=== PATIENT | female | born 1970 | race Caucasian/White ===

== ENCOUNTER 2023-03-07 18:55 | Outpatient (OUT) | payer OTHER, SELFPAY ==
--- NOTE | 2023-03-07 | US_ITS ---
The [address] [address] Patient Name: SALVATORE MADDEN MRN: [id number] date: 1970 Sex: F Assigned Patient Location: US Current Patient Location: Accession/Order Number: [id number] Exam Date: 03/07/2023 18:57 Report Date: 03/08/2023 07:16 At the request of: AGAPITO MACKAY Procedure: US pelvis transvaginal EXAMINATION: US pelvis transvaginal HISTORY: VAGINAL BLEEDING N93.9 COMPARISON: No relevant comparison available. FINDINGS: The uterus is normal in size, contour and echotexture, retroflexed The uterus measures 9.9 x 4.2 x 4.2 cm. No focal myometrial mass. Linear hyperechogenicity identified within the endometrial cavity with acoustic shadowing consistent with an IUD, poorly visualized. The endometrium measures 5 mm, normal. The right ovary measures 2.0 x 1.7 x 2.1 cm. Normal color flow The left ovary is not visualized No free fluid US/US pelvis transvaginal IMPRESSION: No acute abnormality Electronically authenticated by: ANDI LAZAR Date: 03/08/2023 07:16
== END 2023-03-07 18:56 | disposition home or self-care (01) ==
PROVIDERS: PCP Family Medicine; Visit Provider Midwife
DX: N93.9 Abnormal uterine and vaginal bleeding, unspecified (principal)
CPT/HCPCS: 76830

== ENCOUNTER 2024-02-24 07:55 | Outpatient (OUT) | payer OTHER, SELFPAY ==
--- NOTE | 2024-02-24 08:03 | ECG_ITS ---
The [facility] Test Date: 2024-02-24 Pat Name: SALVATORE MADDEN Department: Room: - Gender: Female [employer]: : 1970 Requested By: CHINTAN TATE Order Number: [id number] Reading MD: YOHAN VIVAR Measurements Intervals [place] Rate: 58 P: 68 CO: 163 QRS: 84 QRSD: 81 T: 71 QT: 395 QTc: 389 Interpretive Statements SINUS BRADYCARDIA No previous ECG available for comparison Electronically Signed On 02-25-2024 7:54:59 EST by YOHAN VIVAR
--- OUTSIDE RECORDS SUMMARY | 2024-02-24 08:12 | XMS_ITS | CCD ---
Author Organization [facility] Inform ion Partnership [facility] Care Team Providers Care Nutter Up Name Role Phone CRISTAL BAÑUELOS Referring Unavailable NICK VORA. Primary Care Unavailable Nick Vora MD Primary Care Provider CRISTAL BAÑUELOS Attending Unavailable NICK VORA Referring Unavailable NICK VORA Primary Care Unavailable CRISTAL BAÑUELOS Referring Unavailable NICK VORA Primary Care Unavailable Nick Vora MD Unavailable [phone] BARBARA BARRAGAN Attending Unavailable BARBARA BARRAGAN Attending Unavailable BARBARA BARRAGAN Attending Unavailable BARBRAA BARRAGAN Referring Unavailable BARBARA BARRAGAN Attending Unavailable BARBARA BARRAGAN Referring Unavailable CHINTAN LEWIS Attending Unavailable BARBARA BARRAGAN Referring Unavailable Allergies Allergy Classification Reported Allergen(s) Allergy Type Date of Onset Reaction(s) Facility (7 sources) Iohexol; Translations: [IOHEXOL] Drug Allergy 09-13-2016 [facility] Repository (11 sources) Iodinated Contrast Media Drug Allergy 09-13-2016 [facility] Medications Current Medications Medication Drug Class(es) Dates Sig (Normalized) Sig (Original) levothyroxine sodium 0.075 mg oral tablet (17 sources) l-Thyroxine Start: 12-22-2023 SYNTHROID 75 mcg tablet Indications: Hypothyroidism, unspecified type 1 tablet daily and skipping on Tuesday 78 tablet 3 12/22/2023 Active Start: 12-21-2022 End: 12-22-2023 take 1 tablet by mouth before mealtime Synthroid 75 MCG tablet Take 75 mcg by mouth in the morning. Take before meals. 12/21/2022 Active liothyronine sodium 0.005 mg oral tablet (15 sources) l-Triiodothyronine Start: 12-21-2022 take 1 tablet by mouth every other day liothyronine (Cytomel) 5 MCG tablet Take 5 mcg by mouth every other day 12/21/2022 Active Completed/Discontinued Medications Medication Drug Class(es) Dates Sig (Normalized) Sig (Original) acetaminophen 325 mg / HYDROcodone bitartrate 7.5 mg oral tablet (1 source) Opioid Agonist Start: 12-05-2017 End: 12-19-2023 HYDROcodone-acetami nophen (NORCO) 7.5-325 mg per tablet Indications: Abdominal wall bulge Take 1 tablet by mouth every 6 (six) hours as needed for pain for up to 25 doses. Max Daily Amount: 4 tablets 25 tablet 12/05/2017 12/19/2023 Discontinued levonorgestrel 0.480986 mg/hr intrauterine system (4 sources) Progestin, Progestin-containi ng Intrauterine Device End: 12-22-2023 Levonorgestrel (Liletta, 52 MG,) 20.1 MCG/DAY intrauterine device Liletta 12/22/2023 Discontinued (Therapy completed) Problems Problem Classification Problem Date Documented Date Episodic/Chronic Diabetes mellitus without complication (1 source) Diabetes mellitus Onset: 12-19-2023 Chronic Menopausal disorders (15 sources) Postmenopausal bleeding; Translations: [Postmenopausal bleeding] Onset: 02-06-2024 02-06-2024 Chronic Other screening for suspected conditions (not mental disorders or infectious disease) (4 sources) Cancer cervix screening status; Translations: [Encounter for screening for malignant neoplasm of cervix] 01-05-2024 Episodic Thyroid disorders (7 sources) Hypothyroidism, unspecified; Translations: [Hypothyroidism] Onset: 03-16-2023 12-19-2023 Chronic Results Test Name Value Interpretation Reference Range Facility DBT Breast - bilateral raudel johnson 01-25-2024 Impression: No specific evidence of malignancy seen in either breast. BIRADS 2 - Benign Findings DENSITY: The breasts are heterogeneously dense, which may obscure small masses. FOLLOW-UP: Routine Screening Mammogram ELECTRONICALLY SIGNED BY: Dragan Lynn M.D. IMAGING Examination: BI MAMMOGRAM SCREENING TOMOSYNTHESIS BILATERAL Clinical History: screening Technique: Screening digital mammography study of both breasts was performed with 2-D and 3-D tomosynthesis imaging. Study was compared to the prior exam dated 01/26/2022. Findings: There is no evidence of interval dominant spiculated mass, grouped microcalcifications , or skin thickening which would be suggestive of malignancy. A few benign-appearing calcifications are seen on the right. Dragan Garcia MD - 01/25/2024 Examination: BI MAMMOGRAM SCREENING TOMOSYNTHESIS BILATERAL Clinical History: screening Technique: Screening digital mammography study of both breasts was performed with 2-D and 3-D tomosynthesis imaging. Study was compared to the prior exam dated 01/26/2022. Findings: There is no evidence of interval dominant spiculated mass, grouped microcalcifications , or skin thickening which would be suggestive of malignancy. A few benign-appearing calcifications are seen on the right. IMPRESSION: Impression: No specific evidence of malignancy seen in either breast. BIRADS 2 - Benign Findings DENSITY: The breasts are heterogeneously dense, which may obscure small masses. FOLLOW-UP: Routine Screening Mammogram ELECTRONICALLY SIGNED BY: Dragan Lynn M.D. [facility] DBT Breast - bilateral scree ningOrdered By: Dragan Lynn on 01-25-2024 [facility] BI MAMMOGRAM SCREENING TOMOS YNTHESIS BILATERALon 01-24-2024 BI MAMMOGRAM SCREENING TOMOSYNTHESIS BILATERAL This is a summary report. The complete report is available in the patient's medical record. If you cannot access the medical record, please contact the sending organization for a detailed fax or copy. Examination: BI MAMMOGRAM SCREENING TOMOSYNTHESIS BILATERAL Clinical History: screening Technique: Screening digital mammography study of both breasts was performed with 2-D and 3-D tomosynthesis imaging. Study was compared to the prior exam dated 01/26/2022. Findings: There is no evidence of interval dominant spiculated mass, grouped microcalcifications , or skin thickening which would be suggestive of malignancy. A few benign-appearing calcifications are seen on the right. IMPRESSION: Impression: No specific evidence of malignancy seen in either breast. BIRADS 2 - Benign Findings DENSITY: The breasts are heterogeneously dense, which may obscure small masses. FOLLOW-UP: Routine Screening Mammogram ELECTRONICALLY SIGNED BY: Dragan Lynn M.D. Normal Not Available DBT Breast - bilateral scree alex 01-24-2024 Radiology Study observation (narrative) [facility] - Cytologyon 12-16 Sheet Folder Cyto stain Nom (Cvx/Vag) [ID] [facility] Comment on above: KMB, CT(ASCP) CT scr eening location: [place] [address]. LXT, CT(ASCP) CT scr eening location: [place] [address]. Cytology study comment Cyto stain Arjun (Cvx/Vag) [Interp] [facility] Comment on above: This Pap test has be en evaluated with computer assisted technology. Microscopic observation Cyto stain Nom (Cvx) [facility] Comment on above: Cytology Results: Ne gative for intraepithelial lesion or malignancy. Specimen source Cyto stain Nom (Cvx/Vag) [facility] Comment on above: None given Statement of adequacy Cyto stain (Cvx/Vag) [Interp] [facility] Comment on above: Satisfactory for francia luation. Endocervical/transformation zone component absent. Laboratory - Microbiology an d Antimicrobial susceptibilityon 01-13-2024 HPV 16+18+31+33+35+39+45+51+ 52+56+58+59+66+68 DNA ESTRELLA+probe Ql (Cvx) Not detected NOT DETECTED [facility] Comment on above: Not Detected High Risk HPV types (16,18,31,33,35,39,45,51,52, 56,58,59,66,68) were not detected. Other HPV types which cause anogenital lesions may be present. The significance of the other types of HPV in malignant processes has not been established. Methodology: Real Time PCR No Panel Informationon 01-12 (ALWAYS MESSAGE) [facility] Comment on above: EXPLANATORY NOTE: The Pap is a screening test for cervical cancer. It is not a diagnostic test and is subject to false negative and false positive results. It is most reliable when a satisfactory sample, regularly obtained, is submitted with relevant clinical findings and history, and when the Pap result is evaluated along with historic and current clinical information. Clinical information [facility] Comment on above: None given Date of previous biopsy [facility] Comment on above: NONE GIVEN Date of previous PAP smear [facility] Comment on above: NONE GIVEN Last menstrual period start date [facility] Comment on above: NONE GIVEN Performing Organization Information Site ID: [id number] Name: [facility]/Eitan Doherty MD Address: [address] [place] [address] Dr Daley, MD Director: Russell Langford M.D.,PhD Site ID: [id number] Name: [facility] Address: [address] [place] [address], [address] [place] [id number] Director: Adam Westbrook MD [facility] US Pelvis transvaginalon EXAM: Pelvic Ultrasound, Transvaginal: REASON FOR EXAM: PMB. COMPARISON: None TECHNIQUE: Grayscale and color Doppler ultrasound of the pelvis performed . Transvaginal images were acquired. FINDINGS: Uterus/Endometrium: The uterus is retroflexed. No visible endometrial thickening. A rounded echogenic structure in the lower uterine canal measures 5 mm x 4 mm x 3 mm. Cervix: Normal. Ovaries: The ovaries are not identified due to bowel gas obscuration. Peritoneum: No free fluid visualized. Measurements: Uterus: 11.2 x 4.3 x 5.1 cm EM: 0.8 cm Right Ovary: Obscured Left Ovary: Obscured IMPRESSION: 1. Ovaries are obscured by bowel gas on this exam. 2. There is a small round echogenic lesion in the lower uterine canal, potentially an endometrial polyp. *This report is generated using voice recognition reporting (SocioSquare). On occasion ScreachTVcribe erroneously drops words from the report or replaces the spoken word with similar sounding words. Please call with any questions/concerns regarding this report.* Dictated and transcribed 12/26/2023/jf This report has been electronically signed and approved by the interpreting radiologist. IMAGING Cholo Jordan DO - 12/27/2023 EXAM: Pelvic Ultrasound, Transvaginal: REASON FOR EXAM: PMB. COMPARISON: None TECHNIQUE: Grayscale and color Doppler ultrasound of the pelvis performed . Transvaginal images were acquired. FINDINGS: Uterus/Endometrium: The uterus is retroflexed. No visible endometrial thickening. A rounded echogenic structure in the lower uterine canal measures 5 mm x 4 mm x 3 mm. Cervix: Normal. Ovaries: The ovaries are not identified due to bowel gas obscuration. Peritoneum: No free fluid visualized. Measurements: Uterus: 11.2 x 4.3 x 5.1 cm EM: 0.8 cm Right Ovary: Obscured Left Ovary: Obscured IMPRESSION: 1. Ovaries are obscured by bowel gas on this exam. 2. There is a small round echogenic lesion in the lower uterine canal, potentially an endometrial polyp. *This report is generated using voice recognition reporting (SocioSquare). On occasion PowerScribe erroneously drops words from the report or replaces the spoken word with similar sounding words. Please call with any questions/concerns regarding this report.* Dictated and transcribed 12/26/2023/jf This report has been electronically signed and approved by the interpreting radiologist. [facility] US Pelvis transvaginalOrdere d By: Cholo Jordan on 12-27-2023 [facility] Work Phone: US PELVIS TRANSVAGINALon US PELVIS TRANSVAGINAL EXAM: Pelvic Ultrasound, Transvaginal: REASON FOR EXAM: PMB. COMPARISON: None TECHNIQUE: Grayscale and color Doppler ultrasound of the pelvis performed . Transvaginal images were acquired. FINDINGS: Uterus/Endometrium: The uterus is retroflexed. No visible endometrial thickening. A rounded echogenic structure in the lower uterine canal measures 5 mm x 4 mm x 3 mm. Cervix: Normal. Ovaries: The ovaries are not identified due to bowel gas obscuration. Peritoneum: No free fluid visualized. Measurements: Uterus: 11.2 x 4.3 x 5.1 cm EM: 0.8 cm Right Ovary: Obscured Left Ovary: Obscured IMPRESSION: 1. Ovaries are obscured by bowel gas on this exam. 2. There is a small round echogenic lesion in the lower uterine canal, potentially an endometrial polyp. *This report is generated using voice recognition reporting (Adomike). On occasion PowerScribe erroneously drops words from the report or replaces the spoken word with similar sounding words. Please call with any questions/concerns regarding this report.* Dictated and transcribed 12/26/2023/jf This report has been electronically signed and approved by the interpreting radiologist. Normal Not Available US Pelvis transvaginalon Radiology Study observation (narrative) [facility] FREE T3on 12-19-2023 Free T3 [Mass/Vol] 3.41 pg/mL Normal 2.50-3.90 [facility] Comment on above: Performed By: #### 3 016-3, 3050-0, 7 #### [facility] ([id number]) [address] [place] [address] FREE T4on 12-19-2023 Free T4 [Mass/Vol] 0.90 ng/dL Normal 0.61-1.60 [facility] Comment on above: Performed By: #### 3 016-3, 3050-0, 3027 #### [facility] ([id number]) [address] [place] [address] Free T3 [Mass/Vol]on [facility] Free T4 [Mass/Vol]on [facility] T3, freeon 12-19-2023 Free T3 [Mass/Vol] 3.41 pg/mL 2.50 - 3. 90 pg/mL [facility] T4, freeon 12-19-2023 Free T4 [Mass/Vol] 0.9 ng/dL 0.61 - 1. 60 ng/dL [facility] TSHon 12-19-2023 TSH Qn 0.88 m[IU]/L [facility] TSH Qnon 12-19-2023 [facility] TSH 0.88 uIU/mL Normal 0.49-4.67 [facility] Comment on above: Performed By: #### 3 016-3, 305-0, 7 #### [facility] ([id number]) [address], [address] [place] [address] FREE T3on 03-16-2023 Free T3 [Mass/Vol] 2.89 pg/mL Normal 2.50-3.90 [facility] Comment on above: Performed By: #### 3 016-3, 3050-0, 7 #### [facility] ([id number]) [address] [place] [address] FREE T4on 03-16-2023 Free T4 [Mass/Vol] 0.88 ng/dL Normal 0.61-1.60 [facility] Comment on above: Performed By: #### 3 016-3, 3051-0, 3024-7 #### [facility] ([id number]) [address] [place] [address] TSH Qnon 03-16-2023 TSH 3.06 uIU/mL Normal 0.49-4.67 [facility] Comment on above: Performed By: #### 3 016-3, 3051-0, 3024-7 #### [facility] ([id number]) [address] [place] [address] Free T3on 06-23-2021 FT3 5.37 pg/mL High 2.00-4.40 [facility] [employer] Comment on above: Performed By: #### T SH, FT4, FT3 #### [facility] [address] [place], [place] [id number] Free T4on 06-23-2021 Free T4 [Mass/Vol] 0.74 ng/dL Low 0.80-1.80 [facility] [employer] Comment on above: Performed By: #### T SH, FT4, FT3 #### [facility] [address] [place], [place] [id number] TSHon 06-23-2021 TSH 0.564 uIU/mL Normal 0.400-4.500 [facility] [employer] Comment on above: Performed By: #### T SH, FT4, FT3 #### [facility] [address] [place], [place] [id number] FT3on 08-09-2018 FT3 3.67 pg/mL Normal 2.71-6.16 [facility] Comment on above: Performed By: #### 4 500, 6970, 4520 #### [facility] Unless Otherwise Noted [address] [facility] [address] [place] [address] / COLA #4724/CLIA # [id number] FT4on 08-09-2018 Free T4 [Mass/Vol] 0.82 ng/dL Normal 0.64-1.79 [facility] Comment on above: Performed By: #### 4 500, 4510, 4520 #### [facility] Unless Otherwise Noted [address] [facility] [address] [place] [address] / [facility] #4724/CLIA # [id number] TSHon 08-09-2018 TSH Qn 0.48 uIU/ml Normal 0.47-4.68 [facility] Comment on above: Performed By: #### 4 113, 2070, 4520 #### [facility] [place] Unless Otherwise Noted [address] [address] / COLA #4724/CLIA # [id number] Vital Signs Date Time Vital Sign Value Performing Clinician Linda rios 02-21-2024 08:29-0500 Body mass index (BMI) [Ratio] 23.99 kg/m2 [employer] Work Phone: [facility] 02-21-2024 08:29-0500 Body weight 61.42 kg [employer] Work Phone: [facility] 02-21-2024 08:29-0500 Diastolic blood pressure 80 mm[Hg] [employer] Work Phone: [facility] 02-21-2024 08:29-0500 Systolic blood pressure 130 mm[Hg] [employer] Work Phone: [facility] 02-06-2024 15:02-0500 Body height 160 cm [employer] Work Phone: [facility] 02-06-2024 15:02-0500 Body mass index (BMI) [Ratio] 23.38 kg/m2 Chintan Joshua DO Work Phone: [facility] 02-06-2024 15:02-0500 Body weight 59.88 kg Chintan Joshua DO Work Phone: [facility] 02-06-2024 15:02-0500 Diastolic blood pressure 84 mm[Hg] Chintan Joshua DO Work Phone: [facility] 02-06-2024 15:02-0500 Systolic blood pressure 144 mm[Hg] Chintan Joshua DO Work Phone: [facility] 01-05-2024 16:09-0500 Diastolic blood pressure 80 mm[Hg] Barbara Floro CNM Work Phone: [facility] 01-05-2024 16:09-0500 Systolic blood pressure 122 mm[Hg] Barbara Floro CNM Work Phone: [facility] 12-22-2023 16:09-0500 Body mass index (BMI) [Ratio] 22.48 kg/m2 Barbara Floro CNM Work Phone: [facility] 12-22-2023 16:09-0500 Body weight 60.33 kg Barbara Radhao CNM Work Phone: [facility] 12-19-2023 14:18-0500 Body mass index (BMI) [Ratio] 23.79 kg/m2 Cristal Bañuelos MD Work Phone: [facility] 12-19-2023 14:18-0500 Body weight 60.92 kg Cristal Bañuelos MD Work Phone: [facility] 12-19-2023 14:18-0500 Diastolic blood pressure 87 mm[Hg] Cristal Bañuelos MD Work Phone: [facility] 12-19-2023 14:18-0500 Heart rate 65 /min Cristal Bañuelos MD Work Phone: [facility] 12-19-2023 14:18-0500 Systolic blood pressure 136 mm[Hg] Cristal Bañuelos MD Work Phone: [facility] Encounters Encounter Date Encounter Type Care Provider Facility Start: 02-21-2024 End: 02-21-2024 Bamboo flowsheet Chintan Joshua DO Work Phone: [facility] Start: 02-21-2024 End: 02-21-2024 Bamboo flowsheet Chintan Joshua DO Work Phone: [facility] Start: 02-21-2024 End: 02-21-2024 Office outpatient visit 15 minutes Chintan Joshua DO Work Phone: [facility] Comment on above: Pre-operative exam; Post-menopausal bleeding Start: 02-21-2024 End: 02-21-2024 Preprocedural examination done Chintan Joshua DO Work Phone: [facility] Work Phone: Start: 02-06-2024 End: 02-06-2024 Office outpatient visit 15 minutes Chintan Joshua DO Work Phone: [facility] Comment on above: Post-menopausal blee ding Start: 02-06-2024 End: 02-06-2024 ambulatory CHINTAN JOSHUA Not Available Start: 02-06-2024 End: 02-06-2024 Bamboo flowsheet Chintan Joshua DO Work Phone: [facility] Start: 02-06-2024 End: 02-06-2024 Bamboo flowsheet Chintan Joshua DO Work Phone: [facility] Start: 01-24-2024 End: 01-24-2024 ambulatory BARBARA L FLORO Not Available Start: 01-05-2024 End: 01-05-2024 Gynecological examination normal Barbara L Floro CNM Work Phone: [facility] Start: 01-05-2024 End: 01-05-2024 Periodic preventive med est patient 40-64yrs Barbara L Floro CNM Work Phone: [facility] Comment on above: Post-menopausal blee ding (Primary Dx); Normal gynecologic examination; Screening for cervical cancer; Breast cancer screening by mammogram Start: 01-05-2024 End: 01-05-2024 ambulatory BARBARA L FLORO Not Available Start: 01-05-2024 End: 01-05-2024 Bamboo flowsheet Barbara L Floro CNM Work Phone: [facility] Start: 01-05-2024 End: 01-05-2024 Bamboo flowsheet Barbara L Floro CNM Work Phone: [facility] Start: 12-26-2023 End: 12-26-2023 ambulatory BARBARA L FLORO Not Available Start: 12-22-2023 End: 12-22-2023 Office outpatient visit 15 minutes Barbara L Floro CNM Work Phone: [facility] Comment on above: Post-menopausal blee ding Start: 12-22-2023 End: 12-22-2023 Bamboo flowsheet Barbara L Floro CNM Work Phone: [facility] Start: 12-22-2023 End: 12-22-2023 Bamboo flowsheet Barbara L Floro CNM Work Phone: [facility] Start: 12-22-2023 End: 12-22-2023 Refill Cristal Bañuelos MD Work Phone: [facility] Comment on above: Hypothyroidism, unsp ecified type Start: 12-21-2023 End: 12-21-2023 Orders Only Cristal Bañuelos MD Work Phone: [facility] Comment on above: Hypothyroidism, unsp ecified type Start: 12-20-2023 End: 12-20-2023 Orders Only Cristal Bañuelos MD Work Phone: [facility] Comment on above: Hypothyroidism, unsp ecified type Start: 12-19-2023 End: 12-19-2023 Office outpatient visit 15 minutes Cristal Bañuelos MD Work Phone: [facility] Comment on above: Hypothyroidism, unsp ecified type (Primary Dx) Start: 12-19-2023 End: 12-19-2023 [facility] Start: 03-16-2023 End: 03-17-2023 ambulatory [facility] Start: 03-16-2023 End: 03-16-2023 ambulatory BABRARA Guaman FLORO Not Available Start: 03-07-2023 End: 03-07-2023 ambulatory BARBARA L FLORO Not Available Procedures Date Procedure Procedure Detail Performing Clinician Start: 01-24-2024 Mammography Chintan cisneros DO Work Phone: Start: 01-05-2024 [facility]IN[facility] IMAGING PAP AND HPV DNA REFLEX HPV 16,18 Barbara Barragan CNM Work Phone: Start: 01-26-2022 Mammography Barbara Fl sukhwinder CN Work Phone: Plan of Treatment Date Care Activity Detail Author Start: 11-10-2026 Screening for malign ant neoplasm of cervix [facility] Start: 01-23-2025 Screening for malign ant neoplasm of breast Mammogram [facility] Start: 01-08-2025 End: 01-08-2025 Patient encounter procedure 01/08/2025 3:00 PM EST Office Visit [facility] [address] [place] [address] Barbara Barragan CNM [address] [place], [place] [id number] [facility] Start: 12-18-2024 Adult BMI Screening Adult BMI Screen ing [facility] Start: 12-18-2024 Tobacco Screening Tobacco Screening [facility] Start: 06-21-2024 End: 06-21-2024 Patient encounter procedure 06/21/2024 1:15 PM EDT Office Visit [facility] [address] [facility] [address] [place] [address] Cristal Bañuelos MD [address] [facility] [address] [place] [address] [facility] Start: 02-21-2024 End: 02-21-2024 Patient encounter procedure [facility] Comment on above: Arrived Start: 02-06-2024 End: 02-06-2024 Patient encounter procedure 02/06/2024 2:40 PM EST Consult [facility] [address] [facility] [address] [phone] Chintan Lewis DO [address] [place] [address] Post-menopausal bleeding [facility] Comment on above: Post-menopausal blee ding Start: 01-16-2024 End: 01-16-2024 Patient encounter procedure 01/16/2024 5:30 PM EST Office Visit [facility] [address] [place] [id number] Barbara Barragan, CNM [address] [place] [address] [facility] Start: 01-05-2024 End: 01-05-2024 Patient encounter procedure 01/05/2024 3:15 PM EST Office Visit [facility] [address] [place] [phone] Barbara Barragan, CNM [address] [place] [address] Arrived [facility] Comment on above: Arrived Start: 12-22-2023 End: 12-22-2023 Patient encounter procedure 12/22/2023 4:00 PM EST Office Visit [facility] [address] [place] [id number] Barbara Barragan, CNM [address] [place] [address] Arrived [facility] Comment on above: Arrived Start: 10-16-2023 COVID-19 Vaccine ( season) COVID-19 Vaccine ( season) [facility] Start: 10-16-2023 Influenza vaccination [facility] Start: 01-26-2023 Screening for malign ant neoplasm of breast Mammogram [facility] Start: 08-30-2019 DTaP,Tdap and Td Vaccines (2 - Tdap) DTaP,Tdap and Td Vaccines (2 - Tdap) [facility] Start: 05-06-2019 Administration of varicella zoster vaccine Zoster (Shingles) Vaccine (1 of 2) [facility] Start: 1990 Screening for malign ant neoplasm of cervix Pap Smear [facility] Start: 1981 Depression Screening Depression Scre ening [facility] Start: 1969 Screening for malign ant neoplasm of colon [facility] Immunizations Immunization Date Immunization Notes Care Provider Fa cili 02-12-2023 influenza virus vaccine, unspecified formulation Cristal Bañuelos MD Work Phone: [facility] Payers Date Payer Category Payer Commercial Managed C are - PPO [employer] [id number] 2022 Private Health Insurance [employer] [id number] 2022 Unknown [id number] 2021 Unknown [id number] 1969 Unknown [id number]. 1286 1969 Unknown [id number] [id number]. 1286 1969 Unknown [id number] [id number]. 1286 1969 Unknown [id number] [id number]. 1259 1969 Unknown [id number] [id number]. 1259 1969 Unknown [id number] [id number]. 1259 1969 Unknown [id number] [id number]. 1259 1969 Unknown [id number] 2.16.840.1.955038.3.579.2. 1259 1969 Unknown [id number] [id number]. 1259 1969 Unknown [id number]. 1259 Social History Date Type Detail Facility Start: 05-13-2022 End: 03-07-2023 Tobacco smoking status NHIS Never smoked tobacco [facility] Start: 05-13-2022 End: 03-07-2023 Tobacco use and exposure Smokeless tobacco non-user [facility] Start: 12-19-2023 Alcoholic beverage intake Current non-drinker of alcohol (finding) [facility] Start: 12-19-2023 End: 01-05-2024 History of Social function [facility] Start: 12-19-2023 End: 01-05-2024 Tobacco use panel [facility] Childcare Unknown [facility] Start: 1970 Sex assigned at Not on file P [facility] Start: 09-19-2014 Sex Female (finding) [facility] Start: 03-16-2023 End: 02-21-2024 Alcoholic beverage intake Lifetime non-drinker (finding) [facility] Start: 03-16-2023 Alcohol Comment caffeine: 1-2 cups per day pepsi ; coffee [facility] Medical Equipment Procedure Code Equipment Code Equipment Origin al Text Equipment Identifier Dates Dev Fx Absorbata ck 30 Rpl [id number] - Sna - [id number] Start: 12-05-2017 Dev Fx Absorbata ck 30 Rpl [id number] + [id number] - Sna - [id number] Start: 12-05-2017 Mesh Pariten Ds Rnd 15cm X1 - Sna - [id number] Start: 12-05-2017 Clinical Notes 12-19-2023 to 02-21-2024 Oriana Ji - 02/21/2024 8:40 AM Perry Rice LPN - 02/06/2024 2:40 PM Sameer Barragan CNM - 01/05/2024 3:15 PM OLU Guadalupe - 12/22/2023 4:00 PM EST Note Date & Type Note Facility 02-21-2024 History of Presen t illness Narrative Reason for Appointment: Patient ID: Naila Gonzáles is a 53 y.o. female who presents for Pre-op Visit Patient presents today for Pre Op appointment. Patient is scheduled to undergo D&C Hysteroscopy, possible Myosure on 03/09/[address] Lewis at [facility]. MEDICATIONS Current Outpatient Medications Medication Instructions liothyronine (CYTOMEL) 5 mcg, Every other day Synthroid 75 mcg, Daily before breakfast ALLERGIES Allergies Allergen Reactions Iodinated Contrast Media Hives PROBLEMS Active Ambulatory Problems Diagnosis Date Noted Post-menopausal bleeding 02/06/2024 Resolved Ambulatory Problems Diagnosis Date Noted No Resolved Ambulatory Problems Past Medical History: Diagnosis Date Dysmenorrhea Hypothyroid (CMS/HCC) Melanoma (CMS/HCC) 2006 Migraine (CMS/HCC) HISTORY PAST MEDICAL HISTORY SOCIAL HISTORY Past Medical History: Diagnosis Date Dysmenorrhea Hypothyroid (CMS/HCC) Melanoma (CMS/HCC) 2006 Migraine (CMS/HCC) Social History Tobacco Use Smoking status: Never Smokeless tobacco: Never Substance Use Topics Alcohol use: Never Comment: caffeine: 1-2 cups per day pepsi ; coffee Drug use: Never FAMILY HISTORY Family History Problem Relation Name Age of Onset Hypothyroidism Mother Hyperlipidemia Father Hypertension Father Heart disease Father No Known Problems Brother SURGICAL HISTORY Past Surgical History: Procedure Laterality Date ABDOMINAL WALL SURGERY 2018 laproscopic repair of abdominal wall bulge SECTION, LOW TRANSVERSE x3 HERNIA REPAIR 2012 umbilical REVIEW OF SYSTEMS Review of Systems: Review of Systems Constitutional: Negative. HENT: Negative. Eyes: Negative. Respiratory: Negative. Cardiovascular: Negative. Gastrointestinal: Negative. Genitourinary: Positive for menstrual problem. Musculoskeletal: Negative. Skin: Negative. Neurological: Negative. All other systems reviewed and are negative. Hematological: Negative. Endocrine: Negative. Allergic/Immunologic: Negative. OBJECTIVE Objective: Physical Exam Constitutional: Appearance: Normal appearance. She is well-developed. Cardiovascular: Rate and Rhythm: Normal rate and regular rhythm. Pulmonary: Effort: Pulmonary effort is normal. Breath sounds: Normal breath sounds. Abdominal: General: Bowel sounds are normal. There is no distension. Palpations: Abdomen is soft. Tenderness: There is no abdominal tenderness. There is no guarding or rebound. Musculoskeletal: General: No swelling. Normal range of motion. Right lower leg: No edema. Left lower leg: No edema. Neurological: Mental Status: She is alert and oriented to person, place, and time. Skin: General: Skin is warm and dry. Psychiatric: Mood and Affect: Mood normal. Behavior: Behavior normal. Vitals and nursing note reviewed. Exam conducted with a loin puller present. Vitals: Estimated body mass index is 23.99 kg/m as calculated from the following: Height as of 02/06/24: 5' 3 . Weight as of this encounter: 135 lb 6.4 oz. BP: 130/80 No LMP recorded. Patient is postmenopausal. ASSESSMENT & PLAN ICD-10-CM 1. Pre-operative exam Z01.818 2. Post-menopausal bleeding N95.0 Pre Op: Patient is doing well but has complaints of postmenopausal bleeding. I have discussed conservative management vs. surgical management with the patient in detail and patient desires surgical management at this time. Patient will undergo D&C Hysteroscopy, possible Myosure on 03/09/2024. Surgical consents were signed, mmc was reviewed, and patient is to proceed to [facility] OR. Follow Up: Patient is to follow up between 1-2 weeks post operative to assess proper healing and recovery from procedure. Documented by Cristal Aguilar LPN on behalf of: Chintan Lewis DO documented in this encounter [facility] 02-06-2024 History of Presen t illness Narrative Reason for Appointment: Patient ID: Naila Gonzáles is a 53 y.o. female who presents for No chief complaint on file. Patient presents today for Consult appointment. MEDICATIONS Current Outpatient Medications Medication Instructions liothyronine (CYTOMEL) 5 mcg, Oral, Every other day Synthroid 75 mcg, Oral, Daily before breakfast ALLERGIES Allergies Allergen Reactions Iodinated Contrast Media Hives PROBLEMS Active Ambulatory Problems Diagnosis Date Noted No Active Ambulatory Problems Resolved Ambulatory Problems Diagnosis Date Noted No Resolved Ambulatory Problems Past Medical History: Diagnosis Date Dysmenorrhea Hypothyroid ([facility]/HCC) Melanoma ([facility]) 2006 Migraine ([facility]) HISTORY PAST MEDICAL HISTORY SOCIAL HISTORY Past Medical History: Diagnosis Date Dysmenorrhea Hypothyroid (CMS/[facility]) Melanoma ([facility]) 2006 Migraine ([facility]) Social History Tobacco Use Smoking status: Never Smokeless tobacco: Never Substance Use Topics Alcohol use: Never Comment: caffeine: 1-2 cups per day pepsi ; coffee Drug use: Never FAMILY HISTORY Family History Problem Relation Name Age of Onset Hypothyroidism Mother Hyperlipidemia Father Hypertension Father Heart disease Father No Known Problems Brother SURGICAL HISTORY Past Surgical History: Procedure Laterality Date ABDOMINAL WALL SURGERY 2018 laproscopic repair of abdominal wall bulge SECTION, LOW TRANSVERSE x3 HERNIA REPAIR 2012 umbilical REVIEW OF SYSTEMS Review of Systems: Review of Systems Genitourinary: Positive for vaginal bleeding. All other systems reviewed and are negative. OBJECTIVE Objective: OBGyn Exam Vitals: Estimated body mass index is 22.48 kg/m as calculated from the following: Height as of 11/10/21: 5' 4.5 . Weight as of 12/22/23: 133 lb. BP: No LMP recorded. Patient is postmenopausal. ASSESSMENT & PLAN ICD-10-CM 1. Post-menopausal bleeding N95.0 Ambulatory referral to Obstetrics / Gynecology Patient presents today for referral from [facility] for post menopausal bleeding. Patient had Mirena IUD removed in February and recently had vaginal bleeding. Patient presents to discuss possible Hysteroscopy D&C. Patient is scheduled for surgical management on 03/09/24 Documented by Jessie Rice LPN on behalf of: Chintan Lewis DO documented in this encounter [facility] 01-05-2024 History of Presen t illness Narrative YEARLY HPI: This is a established patient. Chief Complaint Patient presents with Gynecologic Exam Here for annual exam. 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 complaints: Changes in healthsince last visit: no Surgeries or hospitalizations since last visit: none control method: none Menses: none Last pap: 11/10/21 Other: History: Past Medical History: Diagnosis Date Dysmenorrhea Hypothyroid (CMS/HCC) Melanoma (CMS/HCC) 2006 Migraine (CMS/[facility]) Past Surgical History: Procedure Laterality Date ABDOMINAL WALL SURGERY 2018 laproscopic repair of abdominal wall bulge SECTION, LOW TRANSVERSE x3 HERNIA REPAIR 2012 umbilical Family History Problem Relation Name Age of Onset Hypothyroidism Mother Hyperlipidemia Father Hypertension Father Heart disease Father No Known Problems Brother Allergies: Allergies Allergen Reactions Iodinated Contrast Media Hives Medications: Current Outpatient Medications on File Prior to Visit Medication Sig Dispense Refill liothyronine (Cytomel) 5 MCG tablet Take 5 mcg by mouth every other day Synthroid 75 MCG tablet Take 75 mcg by mouth in the morning. Take before meals. No current facility-administered medications on file prior to visit. ROS: Review of Systems All other systems reviewed and are negative. There were no vitals filed for this visit. Physical exam: Physical Exam Vitals reviewed. Constitutional: Appearance: Normal appearance. HENT: Head: Normocephalic. Right Ear: Tympanic membrane normal. Left Ear: Tympanic membrane normal. Mouth/Throat: Mouth: Mucous membranes are moist. Eyes: Pupils: Pupils are equal, round, and reactive to light. Cardiovascular: Rate and Rhythm: Normal rate and regular rhythm. Pulses: Normal pulses. Heart sounds: Normal heart sounds. Pulmonary: Effort: Pulmonary effort is normal. Breath sounds: Normal breath sounds. Chest: Breasts: Right: Normal. Left: Normal. Abdominal: General: Abdomen is flat. Bowel sounds are normal. Palpations: Abdomen is soft. Tenderness: There is no abdominal tenderness. Genitourinary: General: Normal vulva. Exam position: Lithotomy position. Vagina: Normal. No tenderness. Cervix: Normal. No cervical motion tenderness. Uterus: Normal. Adnexa: Right adnexa normal and left adnexa normal. Musculoskeletal: General: Normal range of motion. Cervical back: Normal range of motion and neck supple. Skin: General: Skin is warm and dry. Neurological: General: No focal deficit present. Mental Status: She is alert and oriented to person, place, and time. Psychiatric: Mood and Affect: Mood normal. Assessment and Plan: 1. Annual exam 2. SBE discussed: Yes 3. Diet and exercise discussed: Yes 4. Wt control discussed: No 5. Safe sex discussed: No Naila was seen today for gynecologic exam. Diagnoses and all orders for this visit: Normal gynecologic examination Screening for cervical cancer No follow-ups on file. There are no Patient Instructions on file for this visit. Trang Danielle MA, 01/05/2024 3:16 PM documented in this encounter [facility] 12-22-2023 History of Presen t illness Narrative PROBLEM VISIT Naila Gonzáles is 53 y.o. a patient of [facility] Here for Last pap: 11/10/21 Last mammogram: No LMP recorded. Patient is postmenopausal. History: Past Medical History: Diagnosis Date Dysmenorrhea Hypothyroid (CMS/HCC) Melanoma (CMS/HCC) 2006 Migraine (CMS/HCC) Past Surgical History: Procedure Laterality Date ABDOMINAL WALL SURGERY 2018 laproscopic repair of abdominal wall bulge SECTION, LOW TRANSVERSE x3 HERNIA REPAIR 2012 umbilical Family History Problem Relation Name Age of Onset Hypothyroidism Mother Hyperlipidemia Father Hypertension Father Heart disease Father No Known Problems Brother @SOCHX@ Allergies: Allergies Allergen Reactions Iodinated Contrast Media Hives Medications: Current Outpatient Medications on File Prior to Visit Medication Sig Dispense Refill liothyronine (Cytomel) 5 MCG tablet Take 5 mcg by mouth every other day Synthroid 75 MCG tablet Take 75 mcg by mouth in the morning. Take before meals. [DISCONTINUED] Levonorgestrel (Liletta, 52 MG,) 20.1 MCG/DAY intrauterine device Liletta No current facility-administered medications on file prior to visit. There were no vitals filed for this visit. HPI: ROS: Review of Systems Physical exam: Physical Exam Genitourinary: Vagina: Normal. No signs of injury and foreign body. Cervix: No cervical motion tenderness. Uterus: Normal. Adnexa: Right adnexa normal and left adnexa normal. Comments: Speculum exam, no active bleeding noted Assessment and Plan: There are no diagnoses linked to this encounter. No follow-ups on file. There are no Patient Instructions on file for this visit. Trang Danielle MA,12/22/2023 4:15 PM documented in this encounter [facility] 12-22-2023 Miscellaneous Notes Pharmacy asking for generic script for cheaper cost because they fill synthroid as generic. But not always guaranteed. I put no substitutions on script for them to stop contacting us and holding pt medication. OK to sign and resend documented in this encounter [facility] 12-22-2023 Telephone encounter Note Pharmacy asking for generic script for cheaper cost because they fill synthroid as generic. But not always guaranteed. I put no substitutions on script for them to stop contacting us and holding pt medication. OK to sign and resend [facility] 12-20-2023 Telephone encounter Note Naila called - her appt was cancelled - I put her in for Jan 15 but she's asking if she can get in any sooner . Having heavy bleeding and she said other issues . Naila- [phone] [facility] 12-20-2023 Miscellaneous Notes Naila called - her appt was cancelled - I put her in for Jan 15 but she's asking if she can get in any sooner . Having heavy bleeding and she said other issues . Naila- [phone] documented in this encounter [facility] 12-19-2023 History of Presen t illness Narrative REASON FOR VISIT: Naila Gonzáles is seen in follow-up today for Hypothyroidism. HPI: Last seen December 15, 2022. She has gained 7#. No changes to diet/activity. Remains active. No regular exercise. She reports some fatigue, not always sleeping the best. She is menopausal, but had spotting about 6-8 months ago. She had evaluation by structural design engineer, which was normal. She had another menses last week. Less hot flashes/night sweats. No changes to bowel habits. Some hair loss. No dry skin/brittle nails. No changes in mood/concentration or focus. Currently taking levothyroxine 75 mcg daily except skipping Tuesday and Liothyronine 5 mcg daily. Switched from Amour thyroid because levels were so hard to control. She was on Synthroid in the past, which she felt controlled her levels better. ROS: 10-system ROS was performed and is negative, unless documented in HPI PAST MEDICAL HISTORY: Past Medical History: Diagnosis Date Cancer ([facility]-HCC) Hypothyroid Melanoma ([facility]-HCC) PONV (postoperative nausea and vomiting) after spinal Visual impairment contact Allergies, Social history, and Family history were all reviewed and updated in this chart. PHYSICAL EXAM: Physical Exam Vitals reviewed. Constitutional: Appearance: Normal appearance. HENT: Head: Normocephalic. Eyes: General: Lids are normal. Conjunctiva/sclera: Conjunctivae normal. Neck: Thyroid: No thyroid mass, thyromegaly or thyroid tenderness. Vascular: No carotid bruit. Trachea: Trachea and phonation normal. Cardiovascular: Rate and Rhythm: Normal rate and regular rhythm. Heart sounds: Normal heart sounds, S1 normal and S2 normal. Pulmonary: Effort: Pulmonary effort is normal. Breath sounds: Normal breath sounds and air entry. Lymphadenopathy: Cervical: No cervical adenopathy. Skin: General: Skin is warm and dry. Neurological: General: No focal deficit present. Mental Status: She is alert and oriented to person, place, and time. Psychiatric: Attention and Perception: Attention normal. Mood and Affect: Affect normal. Speech: Speech normal. Behavior: Behavior is cooperative. LABS: TSH Lab Results Component Value Date TSH 3.06 03/16/2023 T3 Lab Results Component Value Date T3 2.89 03/16/2023 T4 Lab Results Component Value Date T4 0.88 03/16/2023 ASSESSMENT: Clinically hypothyroid, due for updated thyroid labs now. Continue brand name Synthroid and liothyronine. Will adjust dose based on lab results. 1. Hypothyroidism, unspecified type - TSH; Future - T4, free; Future - T3, free; Future RETURN TO CLINIC: 6 months documented in this encounter [facility] Evaluation note Diagnosis Hypothyroidism, unspecified type- Primary documented in this encounter [facility]* Diagnosis Hypothyroidism, unspecified type documented in this encounter [facility]* Diagnosis Hypothyroidism, unspecified type documented in this encounter [facility]* Diagnosis Hypothyroidism, unspecified type documented in this encounter [facility]* Diagnosis Post-menopausal bleeding Postmenopausal bleeding documented in this encounter [facility] HealthcareEvaluation note* Diagnosis Post-menopausal bleeding Postmenopausal bleeding Post-menopausal bleeding Postmenopausal bleeding documented in this encounter [facility] HealthcareEvaluation note* Diagnosis Post-menopausal bleeding- Primary Postmenopausal bleeding Normal gynecologic examination Screening for cervical cancer Screening for malignant neoplasm of the cervix Breast cancer screening by mammogram Breast cancer screening by mammogram documented in this encounter [facility] HealthcareEvaluation note* Diagnosis Pre-operative exam Unspecified pre-operative examination Post-menopausal bleeding Postmenopausal bleeding documented in this encounter [facility] HealthcareInstructionsNot on filedocumented in this encounterProSelect [facility] SystemInstructionsNot on filedocumented in this encounterProSelect Medical [facility] SystemInstructionsNot on filedocumented in this encounterProSelect Medical [facility] SystemInstructionsNot on filedocumented in this encounterFire[facility] Summary Purpose Family History No Family History Records FoundNo Family History Records FoundNo Family History Records FoundNo Family History Records FoundNo Family History Records FoundNo Family History Records Found Advance Directives No Advanced Directives Records FoundNo Advanced Directives Records FoundNo Advanced Directives Records FoundNo Advanced Directives Records FoundNo Advanced Directives Records FoundNo Advanced Directives Records Found Additional Source Comments INFORMATION SOURCE (unrecogn ized section and content) DATE CREATED AUTHOR 08/12/2018 [facility] DATE CREATED AUTHOR AUTHOR'S ORGANIZ ATION 06/25/2021 [facility] dical Specialist DATE CREATED AUTHOR AUTHOR'S ORGANIZ ATION 03/20/2023 [facility] DATE CREATED AUTHOR AUTHOR'S ORGANIZ ATION 12/20/2023 [facility] DATE CREATED AUTHOR AUTHOR'S ORGANIZ ATION 12/20/2023 [facility] DATE CREATED AUTHOR AUTHOR'S ORGANIZ ATION 02/08/2024 [facility] dical Specialists EPIC Reason for Visit (unrecogniz ed section and content) Reason Comments Diabetes Mellitus Reason Onset Date Comments Med Refill 12/22/2023 Reason Comments postmenopausal bleeding Specialty Diagnoses / Procedures Referred By Manjit mcmillan Referred To Contact Obstetrics and Gynecology Diagnoses Post-menopausal bleeding Procedures [place] OFFICE/OUTPATIENT [facility] Barbara Barragan L, CNM [address] [place] [address] Phone: tel: fax: Chintan Lewis, DO [address] [place] [address] [place] [address] Phone: tel: fax: Referral ID Status Reason Start Date Expiration Date Visits Requested Visits Authorized [id number] Pending Review Specialty Services Required 4 07/03/2024 1 1 Reason Comments Gynecologic Exam Reason Comments Pre-op Visit Care Teams (unrecognized sec tion and content) Nutter Up Relationship Specialty Start Date End Date Nick Vora MD [address] [address] PCP - General Family Medicine 11/02/19 Nutter Up Relationship Specialty Start Date End Date Nick Vora MD [address] [address] PCP - General Family Medicine 11/02/19 Nutter Up Relationship Specialty Start Date End Date Nick Vora MD [address] [address] PCP - External PCP Family Medicine 07/24/22 Nutter Up Relationship Specialty Start Date End Date Nick Vora MD [address] [address] PCP - General Family Medicine 11/02/19 Nutter Up Relationship Specialty Start Date End Date Nick Vora MD [address] [address] PCP - General Family Medicine 11/02/19 Nutter Up Relationship Specialty Start Date End Date Nick Vora MD [address] [address] PCP - External PCP Family Medicine 07/24/22 Nutter Up Relationship Specialty Start Date End Date Nick Vora MD [address] [place] [address] PCP - External PCP Family Medicine 07/24/22 Nutter Up Relationship Specialty Start Date End Date Nick Vora MD [address] [address] PCP - External PCP Family Medicine 07/24/22 Nutter Up Relationship Specialty Start Date End Date Nick Vora MD [address] [place] [address] PCP - External PCP Family Medicine 07/24/22 Nutter Up Relationship Specialty Start Date End Date Nick Vora MD [address] [place] [address] PCP - External PCP Family Medicine 07/24/22 FOR RECORDS PERTAINING TO PATIENTS WHO ARE OR HAVE BEEN ENROLLED IN A CHEMICAL DEPENDENCY/SUBSTANCEABUSE PROGRAM, SOME INFORMATION MAY BE OMITTED. This clinical summary was aggregated from multiple sources. Caution should be exercised in using it in the provision of clinical care. This summary normalizes information from multiple sources, and as a consequence, information in this document may materially change the coding, format and clinical context of patient data. In addition, data may be omitted in some cases. CLINICAL DECISIONS SHOULD BE BASED ON THE PRIMARY CLINICAL RECORDS. [employer] [employer] provides no warranty or [phone] [id number] the accuracy [phone] completeness of information in this [id number]
== END 2024-02-24 07:56 | disposition home or self-care (01) ==
LOC: PST 07:56
PROVIDERS: PCP Family Medicine; Visit Provider Obstetrics & Gynecology
DX: Z01.810 Encounter for preprocedural cardiovascular examination (principal); N95.0 Postmenopausal bleeding
CPT/HCPCS: 93005

== ENCOUNTER 2024-03-09 07:04 | Day surgery (SDC) | payer OTHER, SELFPAY ==
[2024-02-24 08:23] VITALS: PULSE 66; TEMP 36.3; O2SAT 97; BMI 26.2
[2024-02-24 08:49] VITALS: BP 123/75; PULSE 66; TEMP 36.3; O2SAT 97
[2024-03-09] VITALS (7 sets, daily range): BP systolic 99–177; BP diastolic 8–96; PULSE 67–86; TEMP 36.2–36.6; O2SAT 96–99; BMI 26.2
--- OUTSIDE RECORDS SUMMARY | 2024-03-09 07:07 | XMS_ITS | CCD ---
Author Organization [facility] Inform ion Partnership [facility] Care Team Providers Care Design Director Name Role Phone CRISTAL BAÑUELOS Referring Unavailable NICK VORA. Primary Care Unavailable Nick Vora MD Primary Care Provider CRISTAL BAÑUELOS Attending Unavailable NICK VORA Referring Unavailable NICK VORA Primary Care Unavailable CRISTAL BAÑUELOS Referring Unavailable NICK VORA Primary Care Unavailable Nick Vora MD Unavailable [phone] BARBARA BARRAGAN Attending Unavailable BARBARA BARRAGAN Attending Unavailable BARBARA BARRAGAN Attending Unavailable BARBARA BARRAGAN Referring Unavailable BARBARA BARRAGAN Attending Unavailable BARBARA BARRAGAN Referring Unavailable CHINTAN LEWIS Attending Unavailable ROBOBARBARA Referring Unavailable CHINTAN LEWIS Attending Unavailable Allergies Allergy Classification Reported Allergen(s) Allergy Type Date of Onset Reaction(s) Facility (7 sources) Iohexol; Translations: [IOHEXOL] Drug Allergy 09-13-2016 [facility] Repository (11 sources) Iodinated Contrast Media Drug [facility] Medications Current Medications Medication Drug Class(es) [...] tablets 25 tablet 12/05/2017 12/19/2023 Discontinued levonorgestrel 0.469567 mg/hr intrauterine system (4 sources) Progestin, Progestin-containi [...] benign-appearing calcifications are seen on the right. IMAGING Dragan Lynn MD - 01/25/2024 Examination: BI MAMMOGRAM SCREENING [...] Mammogram ELECTRONICALLY SIGNED BY: Dragan Lynn M.D. [facility] DBT Breast - bilateral scree ningOrdered By: Dragan Lynn on 01-25-2024 [facility] BI MAMMOGRAM SCREENING TOMOS YNTHESIS BILATERALon 01-24-2024 [...] Not Available DBT Breast - bilateral scree sarahgoelian 01-24-2024 Radiology Study observation (narrative) [facility] - Cytologyon 12-16 End Polisher Cyto stain Nom (Cvx/Vag) [ID] [facility] Comment on above: KMB, CT(ASCP) CT scr eening location: [place] [address]. LXT, CT(ASCP) CT scr eening location: [place] [address]. Cytology study comment Cyto stain Arjun (Cvx/Vag) [...] NONE GIVEN Date of previous PAP smear [facility] Comment on above: NONE GIVEN Last menstrual period start date [facility] Comment on above: NONE GIVEN Performing Organization Information Site ID: [id number] Name: [facility] [place] Address: [address] [place] [address] [place] Director: Russell Langford M.D.,PhD Site ID: [id number] Name: [facility] Address: [address] [place] [address], [address] [place] [phone] Director: Adam Westbrook MD Critical access hospital US Pelvis transvaginalon EXAM: Pelvic Ultrasound, Transvaginal: [...] report is generated using voice recognition reporting ([employer]). On occasion [employer] erroneously drops words from the report or replaces the spoken word with similar sounding words. Please call with any questions/concerns regarding this report.* Dictated and transcribed 12/26/2023/laurie This report has been electronically signed and [...] report is generated using voice recognition reporting ([employer]). On occasion [employer] erroneously drops words from the report or replaces the spoken word with similar sounding words. Please call with any questions/concerns regarding this report.* Dictated and transcribed 12/26/2023/jf This report has been electronically signed and approved by the interpreting radiologist. [facility] Pelvis transvaginalOrdere d By: Cholo Jordan on 12-27-2023 [facility] [employer] Work Phone: US PELVIS TRANSVAGINALon US PELVIS [...] report is generated using voice recognition reporting ([employer]). On occasion [employer] erroneously drops words from the report or replaces the spoken word with similar sounding words. Please call with any questions/concerns regarding this report.* Dictated and transcribed 12/26/2023/jf This report has been electronically signed and approved by the interpreting radiologist. Normal Not Available US Pelvis transvaginalon Radiology Study observation (narrative) [facility] FREE T3on 12-19-2023 Free T3 [Mass/Vol] 3.41 pg/mL Normal 2.50-3.90 [facility] Comment on above: Performed By: #### 3 016-3, 3050-0, 7 #### [facility] ([id number]) [address], [address] [place] [address] FREE T4on 12-19-2023 Free T4 [Mass/Vol] 0.90 ng/dL Normal 0.61-1.60 [facility] Comment on above: Performed By: #### 3 016-3, 3050-0, 7 #### [facility] ([id number]) [address], [address] [place] [address] Free T3 [Mass/Vol]on [facility] Free T4 [Mass/Vol]on [facility] T3, freeon 12-19-2023 Free T3 [Mass/Vol] 3.41 pg/mL 2.50 - 3. 90 pg/mL [facility] T4, freeon 12-19-2023 Free T4 [Mass/Vol] 0.9 ng/dL 0.61 - 1. 60 ng/dL [facility] TSHon 12-19-2023 TSH Qn 0.88 m[IU]/L [facility] TSH Qnon 12-19-2023 [facility] TSH 0.88 uIU/mL Normal 0.49-4.67 [facility] Comment on above: Performed By: #### 3 016-3, 305-0, 7 #### [facility] ([id number]) [address] [place] [address] FREE T3on 03-16-2023 Free T3 [Mass/Vol] 2.89 pg/mL Normal 2.50-3.90 [facility] Comment on above: Performed By: #### 3 016-3, 3050-0, 7 #### [facility] ([id number]) [address], [address] [place] [address] FREE T4on 03-16-2023 Free T4 [Mass/Vol] 0.88 ng/dL Normal 0.61-1.60 [facility] Comment on above: Performed By: #### 3 016-3, 3051-0, 3024-7 #### [facility] ([id number]) [address] [facility] [place] [address] TSH Qnon 03-16-2023 TSH 3.06 uIU/mL Normal 0.49-4.67 [facility] Comment on above: Performed By: #### 3 016-3, 3051-0, 3024-7 #### [facility] ([id number]) [address] [facility] [place] [address] Free T3on 06-23-2021 FT3 5.37 pg/mL High 2.00-4.40 [facility] [employer] Comment on above: Performed By: #### T SH, FT4, FT3 #### [facility] [address] [place], [place] [id number] Free T4on 06-23-2021 Free T4 [Mass/Vol] 0.74 ng/dL Low 0.80-1.80 [facility] [employer] Comment on above: Performed By: #### T SH, FT4, FT3 #### [facility] [address] [place], [place] [id number] TSHon 06-23-2021 TSH 0.564 uIU/mL Normal 0.400-4.500 [facility] [employer] Comment on above: Performed By: #### T SH, FT4, FT3 #### [facility] [address] [place], [place] [id number] FT3on 08-09-2018 FT3 3.67 pg/mL Normal 2.71-6.16 [facility] Comment on above: Performed By: #### 4 500, 4510, 4520 #### [facility] Unless Otherwise Noted [address] [address] / COLA #4724/CLIA # [id number] FT4on 08-09-2018 Free T4 [Mass/Vol] 0.82 ng/dL Normal 0.64-1.79 [facility] Diabetes [facility] Comment on above: Performed By: #### 4 500, 4510, 4520 #### [facility] Unless Otherwise Noted [address] [address] / COLA #4724/CLIA # [id number] TSHon 08-09-2018 TSH Qn 0.48 uIU/ml Normal 0.47-4.68 [facility] Diabetes [facility] Comment on above: Performed By: #### 4 500, 8240, 4520 #### [facility] Unless Otherwise Noted [address] [address] / COLA #4724/CLIA # [id number] Vital Signs Date Time Vital Sign Value Performing Clinician Linda rios 02-21-2024 08:29-0500 Body mass index (BMI) [Ratio] 23.99 kg/m2 [employer] Work Phone: [facility] 02-21-2024 08:29-0500 Body weight 61.42 kg [employer] Work Phone: [facility] 02-21-2024 08:29-0500 Diastolic blood pressure 80 mm[Hg] [employer] Work Phone: [facility] 02-21-2024 08:29-0500 Systolic blood pressure 130 mm[Hg] Chintan Joshua [employer] Work Phone: [facility] 02-06-2024 15:02-0500 Body height 160 cm [employer] Work Phone: [facility] 02-06-2024 15:02-0500 Body mass index (BMI) [Ratio] 23.38 kg/m2 Chintan Joshua DO Work Phone: [facility] 02-06-2024 15:02-0500 Body weight 59.88 kg Chintan Joshua DO Work Phone: [facility] 02-06-2024 15:02-0500 Diastolic blood pressure 84 mm[Hg] Chintan Joshua DO Work Phone: [facility] 02-06-2024 15:02-0500 Systolic blood pressure 144 mm[Hg] Chintan Joshua DO Work Phone: [facility] 01-05-2024 16:09-0500 Diastolic blood pressure 80 mm[Hg] Barbara Robo CNM Work Phone: [facility] 01-05-2024 16:09-0500 Systolic blood pressure 122 mm[Hg] Barbara Robo CNM Work Phone: [facility] 12-22-2023 16:09-0500 Body mass index (BMI) [Ratio] 22.48 kg/m2 Barbara Robo CNM Work Phone: [facility] 12-22-2023 16:09-0500 Body weight 60.33 kg Barbara Robo CNM Work Phone: [facility] 12-19-2023 14:18-0500 Body mass index (BMI) [Ratio] 23.79 kg/m2 Cristal Bañuelos MD Work Phone: [facility] 12-19-2023 14:18-0500 Body weight 60.92 kg Cristal Bañuelos MD Work Phone: [facility] 12-19-2023 14:18-0500 Diastolic blood pressure 87 mm[Hg] Cristal Bañuelos MD Work Phone: [facility] 12-19-2023 14:18-0500 Heart rate 65 /min Cristal Bañuelos MD Work Phone: [facility] 12-19-2023 14:18-0500 Systolic blood pressure 136 mm[Hg] Cristal Bañuelos MD Work Phone: [facility] Encounters Encounter Date Encounter Type Care Provider [...] examination done Chintan Joshua DO Work Phone: [facility] Work Phone: Start: 02-21-2024 End: 02-21-2024 ambulatory CHINTAN JOSHUA Not Available Start: 02-06-2024 End: 02-06-2024 Office outpatient visit [...] normal Barbara L Floro CNM Work Phone: [facility] Start: 01-05-2024 End: 01-05-2024 Periodic preventive med est patient 40-64yrs Barbara L Robo CNM Work Phone: [facility] Comment [...] type Start: 12-21-2023 End: 12-21-2023 Orders Only rCistal Bañuelos MD Work Phone: [facility] Comment on above: Hypothyroidism, unsp ecified type Start: 12-20-2023 End: 12-20-2023 Orders Only Cristal Bañuelos MD Work Phone: [facility] Comment on above: Hypothyroidism, unsp ecified type Start: 12-19-2023 End: 12-19-2023 Office outpatient visit 15 minutes Cristal Bañuelos MD Work Phone: [facility] Comment on above: Hypothyroidism, unsp ecified type (Primary Dx) Start: 12-19-2023 End: 12-19-2023 ambulatory [facility] Start: 03-16-2023 End: 03-17-2023 ambulatory [facility] Start: 03-16-2023 End: 03-16-2023 ambulatory BARBARA BARRAGAN Not Available Start: 03-07-2023 End: 03-07-2023 ambulatory BARBARA RIVASO Not Available Procedures Date Procedure Procedure Detail Performing Clinician Start: 01-24-2024 Mammography Chintan cisneros DO Work Phone: Start: 01-05-2024 THINPREP IMAGING PAP AND HPV DNA REFLEX HPV 16,18 Barbara Barragan CNM Work Phone: Start: 01-26-2022 Mammography Barbara Fl sukhwinder CNM Work Phone: Plan of Treatment Date Care Activity Detail Author Start: 11-10-2026 Screening for malign ant neoplasm of cervix [facility] Start: 01-23-2025 Screening for malign ant neoplasm of breast Mammogram [facility] Start: 01-08-2025 End: 01-08-2025 Patient encounter procedure 01/08/2025 3:00 PM EST Office Visit [facility] [address] [place] [address] Barbara Barragan CNM [address] [place] [address] [facility] Start: 12-18-2024 Adult BMI Screening Adult BMI Screen ing [facility] Start: 12-18-2024 Tobacco Screening Tobacco Screening [facility] Start: 06-21-2024 End: 06-21-2024 Patient encounter procedure 06/21/2024 1:15 PM EDT Office Visit [facility] [address] [facility] [address] [place] [id number] Cristal Bañuelos MD [address] [facility] [address] [place] [address] [facility] Start: 02-21-2024 End: 02-21-2024 Patient encounter procedure [facility] Comment on above: Arrived Start: 02-06-2024 End: 02-06-2024 Patient encounter procedure 02/06/2024 2:40 PM EST Consult [facility] [address] [place] [address] Chintan Lewis DO [address] [place] [address] Post-menopausal bleeding [facility] Comment on above: Post-menopausal blee ding Start: 01-16-2024 End: 01-16-2024 Patient encounter procedure 01/16/2024 5:30 PM EST Office Visit [facility] [address] [place] [phone] Barbara Barragan, CN [address] [place] [address] [facility] Start: 01-05-2024 End: 01-05-2024 Patient encounter procedure 01/05/2024 3:15 PM EST Office Visit [facility] [address] [place] [address] Barbara Barragan, CN [address] [place] [address] Arrived [facility] Comment on above: Arrived Start: 12-22-2023 End: 12-22-2023 Patient encounter procedure 12/22/2023 4:00 PM EST Office Visit [facility] [address] [place] [phone] Barbara Barragan, CNM [address] [place] [address] Arrived [facility] Comment on above: Arrived Start: 10-16-2023 COVID-19 Vaccine ( season) COVID-19 Vaccine ( season) [facility] Start: 10-16-2023 Influenza vaccination [facility] Start: 01-26-2023 Screening for malign ant neoplasm of breast Mammogram [facility] Start: 08-30-2019 DTaP,Tdap and Td Vaccines (2 - Tdap) DTaP,Tdap and Td Vaccines (2 - Tdap) [facility] Start: 05-06-2019 Administration of varicella zoster vaccine Zoster (Shingles) Vaccine (1 of 2) [facility] Start: 1990 Screening for malign ant neoplasm of cervix Pap Smear [facility] Start: 1981 Depression Screening Depression Scre ening [facility] Start: 1969 Screening for malign ant neoplasm of colon [facility] Immunizations Immunization Date Immunization Notes Care Provider Fa cility 02-12-2023 influenza virus vaccine, unspecified formulation Cristal Bañuelos MD Work Phone: [facility] Payers Date Payer Category Payer Commercial Managed C are - PPO [employer] [id number] 2022 Private Health Insurance [employer] [id number] 2022 Unknown [id number] 2021 Unknown [id number] 1969 Unknown [id number] [id number]. 1286 1969 Unknown [id number] 2.16.840.1.900016.3.579.2. 1286 1969 Unknown [id number] 2.16.840.1.084372.3.579.2. 1286 1969 Unknown [id number] 2.16.840.1.776851.3.579.2. 1259 1969 Unknown [id number] 2.16.840.1.431814.3.579.2. 9 1969 Unknown [id number] 2.16.840.1.679924.3.579.2. 1259 1969 Unknown [id number] 2.16.840.1.901762.3.579.2. 1259 1969 Unknown [id number] 2.16.840.1.113729.3.579.2. 1259 1969 Unknown [id number] 2.16.840.1.203256.3.579.2. 1259 1969 Unknown [id number] 2.16.840.1.863968.3.579.2. 1259 1969 Unknown [id number] [id number]. 1259 Social History Date Type Detail Facility Start: 05-13-2022 End: 03-07-2023 Tobacco smoking status NHIS Never smoked tobacco [facility] Start: 05-13-2022 End: 03-07-2023 Tobacco use and exposure Smokeless tobacco non-user [facility] Start: 12-19-2023 Alcoholic beverage intake Current non-drinker of alcohol (finding) [facility] Start: 12-19-2023 End: 01-05-2024 History of Social function [facility] Start: 12-19-2023 End: 01-05-2024 Tobacco use panel [facility] Childcare Unknown [facility] Start: 1970 Sex assigned at Not on file [facility] Start: 09-19-2014 Sex Female (finding) [facility] Start: 03-16-2023 End: 02-21-2024 Alcoholic beverage intake Lifetime non-drinker (finding) [facility] Start: 03-16-2023 Alcohol Comment caffeine: 1-2 cups per day pepsi ; coffee [facility] Medical Equipment Procedure Code Equipment Code Equipment Origin al Text Equipment Identifier Dates Dev Fx Absorbata ck 30 Rpl [id number] + [id number] - Sna - [id number] Start: 12-05-2017 Dev Fx Absorbata ck 30 Rpl [id number] + [id number] - Sna - [id number] Start: 12-05-2017 Mesh Pariten Ds Rnd 15cm X1 - Sna - [id number] Start: 12-05-2017 Clinical Notes 12-19-2023 to 02-21-2024 Oriana Ji - 02/21/2024 8:40 AM Perry Rice LPN - 02/06/2024 2:40 PM Sameer Barragan CNM - 01/05/2024 3:15 PM Sameer Barragan CNM - 12/22/2023 4:00 PM EST Note Date & Type Note Facility 02-21-2024 History of Presen t illness Narrative Reason for Appointment: Patient ID: Naila Gonzáles is a 53 y.o. female who presents for Pre-op Visit Patient presents today for Pre Op appointment. Patient is scheduled to undergo D&C Hysteroscopy, possible Myosure on 03/09/[address] Lewis at [facility]. MEDICATIONS Current Outpatient Medications Medication Instructions [...] nursing note reviewed. Exam conducted with a die inspector present. Vitals: Estimated body mass index is [...] reviewed, and patient is to proceed to [facility] OR. Follow Up: Patient is to follow up between 1-2 weeks post operative to assess proper healing and recovery from procedure. Documented by Cristal Aguilar LPN on behalf of: Chintan Lewis DO documented in this encounter [facility] 02-06-2024 History of Presen t illness Narrative [...] Gynecology Patient presents today for referral from [facility] for post menopausal bleeding. Patient had Mirena IUD removed in February and recently had vaginal bleeding. Patient presents to discuss possible Hysteroscopy D&C. Patient is scheduled for surgical management on 03/09/24 Documented by Jessie Rice LPN on behalf of: Chintan Lewis DO documented in this encounter [facility] 01-05-2024 History of Presen t illness Narrative YEARLY HPI: This is a established patient. Chief Complaint Patient presents with Gynecologic Exam Here for annual exam. OB History Para Term AB Living 5 5 SAB IAB Ectopic Multiple Live Births # Outcome Date GA Lbr Tha/2nd Weight Sex Type Anes PTL Lv 5 Para 4 Para 3 Para 2 Para 1 Para [employer] complaints: Changes in healthsince last visit: no [...] 01/05/2024 3:16 PM documented in this encounter [facility] 12-22-2023 History of Presen t illness Narrative PROBLEM VISIT Naila Gonzáles is 53 y.o. a patient of [facility] OB/GYN PHYSICIAN Here for Last pap: 11/10/21 Last mammogram: [...] MA,12/22/2023 4:15 PM documented in this encounter [facility] 12-22-2023 Miscellaneous Notes Pharmacy asking for generic script for cheaper cost because they fill synthroid as generic. But not always guaranteed. I put no substitutions on script for them to stop contacting us and holding pt medication. OK to sign and resend documented in this encounter [facility] 12-22-2023 Telephone encounter Note Pharmacy asking for generic script for cheaper cost because they fill synthroid as generic. But not always guaranteed. I put no substitutions on script for them to stop contacting us and holding pt medication. OK to sign and resend [facility] 12-20-2023 Telephone encounter Note Naila called - her appt was cancelled - I put her in for Jan 15 but she's asking if she can get in any sooner . Having heavy bleeding and she said other issues . Naila- [phone] [facility] 12-20-2023 Miscellaneous Notes Naila called - her appt was cancelled - I put her in for Jan 15 but she's asking if she can get in any sooner . Having heavy bleeding and she said other issues . Naila- [phone] documented in this encounter [facility] 12-19-2023 History of Presen t illness Narrative REASON FOR VISIT: Naila Gonzáles is seen in follow-up today for Hypothyroidism. HPI: Last seen December 15, 2022. She has gained 7#. No changes to diet/activity. Remains active. No regular exercise. She reports some fatigue, not always sleeping the best. She is menopausal, but had spotting about 6-8 months ago. She had evaluation by obgyn hospitalist physician, which was normal. She had another menses [...] HISTORY: Past Medical History: Diagnosis Date Cancer ([facility]) Hypothyroid Melanoma ([facility]) PONV (postoperative nausea and vomiting) after spinal [...] CLINIC: 6 months documented in this encounter [facility] Evaluation note Diagnosis Hypothyroidism, unspecified type- Primary documented [facility] Diagnosis Hypothyroidism, unspecified type documented [facility] Diagnosis Hypothyroidism, unspecified type documented [facility] Diagnosis Hypothyroidism, unspecified type documented [facility]* Diagnosis Post-menopausal bleeding Postmenopausal bleeding documented in this encounter [facility] HealthcareEvaluation note* Diagnosis Post-menopausal bleeding Postmenopausal bleeding Post-menopausal bleeding Postmenopausal bleeding documented in this encounter [facility] HealthcareEvaluation note* Diagnosis Post-menopausal bleeding- Primary Postmenopausal bleeding Normal gynecologic examination Screening for cervical cancer Screening for malignant neoplasm of the cervix Breast cancer screening by mammogram Breast cancer screening by mammogram [facility]* Diagnosis Pre-operative exam Unspecified pre-operative examination Post-menopausal bleeding Postmenopausal bleeding documented in this encounter [facility] HealthcareInstructionsNot on filedocumented in this encounter[facility] SystemInstructionsNot on filedocumented in this encounterPro[facility] SystemInstructionsNot on filedocumented in this encounterProMer[facility] SystemInstructionsNot on filedocumented in this encounterProMer[facility] Summary Purpose Family History No Family [...] DATE CREATED AUTHOR AUTHOR'S ORGANIZ ATION 06/25/2021 [facility] dical Specialist DATE CREATED AUTHOR AUTHOR'S ORGANIZ ATION 03/20/2023 [facility] DATE CREATED AUTHOR AUTHOR'S ORGANIZ ATION 12/20/2023 [facility] DATE CREATED AUTHOR AUTHOR'S ORGANIZ ATION 12/20/2023 [facility] DATE CREATED AUTHOR AUTHOR'S ORGANIZ ATION 02/27/2024 [facility] dical Specialists EPIC Reason for Visit (unrecogniz ed section and content) Reason Comments Diabetes Mellitus Reason Onset Date Comments Med Refill 12/22/2023 Reason Comments postmenopausal bleeding Specialty Diagnoses / Procedures Referred By Contac t Referred To Contact Obstetrics and Gynecology Diagnoses Post-menopausal bleeding Procedures [place] OFFICE/OUTPATIENT [facility] Barbara Barragan, CNM [address] [place] [address] Phone: tel: fax: Chintan Lewis, [address] [place] [address] Phone: tel: fax: Referral ID Status Reason Start Date Expiration Date Visits Requested Visits Authorized [id number] Pending Review Specialty Services Required 4 07/03/2024 1 1 Reason Comments Gynecologic Exam Reason Comments Pre-op Visit Care Teams (unrecognized sec tion and content) Design Director Relationship Specialty Start Date End Date Nick Vora MD [address] [id number] PCP - General Family Medicine 11/02/19 Design Director Relationship Specialty Start Date End Date Nick Vora MD [address] [address] PCP - General Family Medicine 11/02/19 Design Director Relationship Specialty Start Date End Date Nick Vora MD [address] [address] PCP - External PCP Family Medicine 07/24/22 Design Director Relationship Specialty Start Date End Date Nick Vora MD [address] [phone] PCP - General Family Medicine 11/02/19 Design Director Relationship Specialty Start Date End Date Nick Vora MD [address] [id number] PCP - General Family Medicine 11/02/19 Design Director Relationship Specialty Start Date End Date Nick Vora MD [address] [address] PCP - External PCP Family Medicine 07/24/22 Design Director Relationship Specialty Start Date End Date Nick Vora MD [address] [address] PCP - External PCP Family Medicine 07/24/22 Design Director Relationship Specialty Start Date End Date Nick Vora MD [address] [phone] PCP - External PCP Family Medicine 07/24/22 Design Director Relationship Specialty Start Date End Date Nick Vora MD [address] [address] PCP - External PCP Family Medicine 07/24/22 Design Director Relationship Specialty Start Date End Date Nick Vora MD [address] [place] [phone] PCP - External PCP Family Medicine 07/24/22 [...] BE BASED ON THE PRIMARY CLINICAL RECORDS. [facility]. provides no warranty or guarantee of the accuracy or completeness of information in this document.
[2024-03-09 07:29] LABS: Basophils Percent Auto 0.7 % (0.2-2.0); Eosinophils Absolute Auto 0.3 10^3/uL (0.0-0.7); Eosinophils Percent Auto 5.5 % (0.9-7.0); Hemoglobin 13.7 g/dL (12.0-16.0); Lymphocytes Percent Auto 36.7 % (20.5-60.0); Mean Corpuscular HGB Conc 33.4 g/dL (29.9-35.2); Mean Corpuscular Hemoglobin 29.3 pg (26.7-34.0); Mean Corpuscular Volume 87.6 fL (81.0-99.0); Mean Platelet Volume 8.1 fL (9.5-13.5); Monocytes Absolute Auto 0.7 10^3/uL (0.3-0.8); Monocytes Percent Auto 11.9 % (1.7-12.0); Neutrophils Absolute Auto 2.5 10^3/uL (1.4-6.5); Neutrophils Percent Auto 45.2 % (43.0-75.0); Platelet Count 348 10^3/uL (150-450); Red Blood Count 4.68 10^6/uL (4.20-5.40); Red Cell Distribution Width 13.2 % (11.0-15.0); White Blood Count 5.5 10^3/uL (4.0-11.0)
[2024-03-09] MEDS: LACTATED RINGER'S SOLUTION 1,000 ML 50 ML IV (07:44)
--- NOTE | 2024-03-09 09:24 | P.ON_ITS ---
Brief Operative Note Date of procedure: 03/09/24 Pre-op diagnosis general: pmb Post-op diagnosis: same as pre-op Procedure: NAME OF PROCEDURE: [ attempted D&c hysteroscopy with myosure] PROCEDURE: The patient was taken back to the Operating Room where she was prepped and draped in normal sterile fashion after being placed under general anesthesia without difficulty. She was also placed in the dorsal lithotomy position. A w eighted speculum was placed in the patient?s vagina. The anterior lip of the cervix could not be easily identified, what appeared to be the cerivical os was significantly stenotiic and the case had to be aborted, was unable to assess uterine cavity. excellent hemostasis was noted. All instruments were removed from the patient?s vagina. The patient tolerated the procedure well. Sponge, lap and needle counts were correct times two. The patient was taken to the Recovery Room in stable condition.Room in stable condition. Anesthesia: MAC Surgeon: Jose Maria Lewis Estimated blood loss (mL): 5 Pathology: none sent Condition: stable Disposition: PACU Urinary Catheter Management Urinary Catheter Management Straight: Cath placed during this visit: no
--- NOTE | 2024-03-09 10:49 | PC.NURSE ---
1049- Patient upto br and voids moderate amount of clear yellow urine without difficulty. Patient denies any uncontrolled pain or nausea.
== END 2024-03-09 11:26 | disposition home or self-care (01) ==
PROVIDERS: PCP Family Medicine; Visit Provider Obstetrics & Gynecology
PROC: (CPT 00952; principal; 2024-03-09 08:10)
DX: N95.0 Postmenopausal bleeding (principal); N88.2 Stricture and stenosis of cervix uteri; E03.9 Hypothyroidism, unspecified
CPT/HCPCS: 00952; 58558; 36415; 85025; J1100; J2250; J2405; J2704; J3010